=== PATIENT | female | born 1990 | race Caucasian/White ===

== ENCOUNTER 2019-02-16 10:48 | Emergency (ER) | payer SELFPAY ==
[~2019-02-16] VITALS: Ht 154.9 cm; Wt 84.5 kg
[2019-02-16 11:11] VITALS: Ht 154.9 cm; Wt 84.5 kg
[2019-02-16 13:19] VITALS: BP 109/83
== END 2019-02-16 13:20 | disposition home or self-care (01) ==
LOC: D.ER 10:48
DX: J06.9 Acute upper respiratory infection, unspecified (principal); J02.9 Acute pharyngitis, unspecified; Z72.0 Tobacco use